=== PATIENT | female | born 1955 | race Caucasian/White ===

== ENCOUNTER → 2018-03-04 | Outpatient (CLI) | payer BC, OTHER ==
[~2018-03-04] VITALS: Ht 170.2 cm; Wt 81.6 kg
[~2018-03-04] MED LIST: ASPIR 8181 MG PO; CARVEDILOL6.25 M1 PO; COZAAR 25 MG TA25 M1 PO
--- NOTE | ~2018-03-04 | CATHLAB ---
[facility] [address] [place] [address] INVASIVE PROCEDURE REPORT Name: ELIECER CASTILLO [facility] [id number] Admission: 03/04/18 Attend Phys: Blair Sarkar MD Discharge: Date of : 51 Date of Service: 03/04/18 1325 Report #: [id number] THIS REPORT FOR: //name// APPROVED REPORT Study performed: 03/04/2018 10:58:22 Patient Details Patient Status: Out-Patient Room #: The patient is a 62 year-old female Event Personnel Blair Sarkar Estate Planning Attorney, Isaiah Shaikh RN, Jenelle Sherwood Sandifer, David Monitor, Calvin Wheeler RN Supervisor Transcribing Operators Procedures Performed Left Heart Cath w/or w/o Coronaries [id number] [facility] Indication Positive stress test, Chest pain Risk Factors Hypertension Procedure Narrative The Right Groin^ was infiltrated with 1% Lidocaine subcutaneous anesthesia. A sheath was inserted into the RFA^. Coronary angiography was performed using coronary diagnostic catheters. The right coronary system was accessed and visualized with a JR4 catheter. The left coronary system was accessed and visualized with a JL4 catheter. The left ventricle was accessed and visualized with a PIGTAIL catheter. Left ventricular/Aortic Valve gradient assessed via catheter pullback. Hemostasis was obtained with manual pressure following sheath removal without any complications. The patient tolerated the procedure well and there were no complications associated with the procedure. There was no hematoma. Intraoperative Conscious Sedation Sedation start time: 11.22 Case end Time: 12.03 Fentanyl 50 mcg Versed 1.5 mg Fluoro Time: 1.29 minutes Dose: DAP 2552 cGycm2 340 mGy [facility] [address] [place] [address] INVASIVE PROCEDURE REPORT Name: KAITY CASTILLOEY FARIBA Room #: REG CL [facility].#: [id number] Admission: 03/04/18 Attend Phys: Blair Sarkar MD Discharge: Date of : 51 Date of Service: 03/04/18 1325 Report #: [id number] Contrast Type and Amount: Omnipaque 95 ml Coronary Angiography The patient's coronary anatomy is right dominant. Diagnostic Cath Left Main Large-caliber vessel, with no flow-limiting lesions. LAD Moderate size caliber vessel, traveling down the anterior wall, wrapping around the apex and terminating in the distal inferior wall. Circumflex Supplies 2 OM vessels. OM1 Patent vessel, with no flow-limiting lesions. OM2 Patent vessel, with no flow-limiting lesions. Right Coronary Dominant vessel, with mild disease in the midsegment, less than 20%. R PDA Patent vessel, with no flow-limiting lesions. RPLV Patent vessel, with no flow-limiting lesions. Left Ventriculography The left ventricle is normal in size with normal contractility. The left ventricular ejection fraction is estimated to be 55-60%. Hemodynamics The aortic pressure is 117/71 mmHg with a mean of 77 mmHg. The left ventricular pressure is 115/11 mmHg with a mean of mmHg. The left ventricular end diastolic pressure is 16 mmHg. There was no gradient across the aortic valve upon pullback. Pullback from the left ventricle to the aorta revealed no gradient across the aortic valve. Conclusion 1. Right dominant system. Mild plaquing in the mid RCA. 2. Normal LV systolic function. 3. Recommend risk factor management. <ELECTRONICALLY SIGNED> By: Blair Sarkar MD 03/04/18 1325 1325 1325 Blair Sarkar MD /INF
[2018-03-04 10:11] LABS: HEMATOCRIT 33.7 % (37.0-47.0); HEMOGLOBIN 10.9 gm/dL (12.0-15.0); MCH 22.8 pg (26.0-34.0); MCHC 32.3 g/dL (28.0-37.0); MCV 70.7 fL (80.0-100.0); RBC 4.76 mil/uL (4.20-5.00); RDW 16.6 % (10.5-14.5); WBC 4.8 thou/uL (4.0-11.0)
[2018-03-04 10:17] LABS: CALCIUM 9.2 mg/dL (8.5-10.1); CREATININE 0.9 mg/dL (0.6-1.0); POTASSIUM 4.3 mmol/L (3.5-5.1)
== END | disposition home or self-care (01) ==
LOC: CATH 07:55
PROVIDERS: Internal Medicine Cardiovascular Disease
DX: I25.10 Atherosclerotic heart disease of native coronary artery without angina pectoris (principal); I10 Essential (primary) hypertension; M19.90 Unspecified osteoarthritis, unspecified site; Z87.891 Personal history of nicotine dependence; Z82.49 Family history of ischemic heart disease and other diseases of the circulatory system; Z98.890 Other specified postprocedural states; Z87.19 Personal history of other diseases of the digestive system; Z79.899 Other long term (current) drug therapy; Z88.8 Allergy status to other drugs, medicaments and biological substances; Z79.82 Long term (current) use of aspirin; Z90.710 Acquired absence of both cervix and uterus

== ENCOUNTER → 2018-05-17 | Outpatient (CLI) | payer BC, OTHER ==
--- NOTE | ~2018-05-17 | 2DMMODE ---
[facility] [address] [place] [address] 2 D/M-MODE ECHOCARDIOGRAM Name: ELIECER CASTILLO Room #: REG [facility]#: [id number] Admission: 05/17/18 Attend Phys: Blair Sarkar MD Discharge: Date of : 51 Date of Service: 05/17/18 1137 Report #: [id number] THIS REPORT FOR: //name// APPROVED REPORT Study performed: 05/17/2018 10:46:46 EXAM: Comprehensive 2D, Doppler, and color-flow Echocardiogram Patient Location: Out-Patient Status: routine BSA: 1.93 HR: 62 bpm BP: 126/82 mmHg Other Information Study Quality: Adequate Indications CAD Hypertension/HDD 2D Dimensions RVDd: 33.01 mm IVSd: 11.15 (7-11mm) LVOT Diam: 22.95 (18-24mm) LVDd: 45.78 mm PWd: 13.45 (7-11mm) Ascending Ao: 30.60 (22-36mm) LVDs: 29.96 (25-40mm) Aortic Root: 30.65 mm IVC: 13.00 mm Volumes Left Atrial Volume (Systole) Single Plane 4CH: 58.04 mL Single Plane 2CH: 72.30 mL LA ESV Index: 36.00 mL/m2 Aortic Valve AoV Peak Tushar.: 1.43 m/s AO Peak Gr.: 8.18 mmHg LVOT Max P.41 mmHg LVOT Max V: 1.16 m/s AMIRA Vmax: 3.36 cm2 Mitral Valve E/A Ratio: 1.1 MV Decel. Time: 247.93 ms MV E Max Tushar.: 0.72 m/s [facility] [address] [address] 2 D/M-MODE ECHOCARDIOGRAM Name: ELIECER CASTILLO Room #: REG [facility]#: [id number] Admission: 05/17/18 Attend Phys: Blair Sarkar MD Discharge: Date of : 51 Date of Service: 05/17/18 1137 Report #: [id number] MV A Tushar.: 0.67 m/s MV PHT: 71.90 ms IVRT: 110.73 ms Pulmonary Valve PV Peak Tushar.: 0.98 m/s PV Peak Gr.: 3.85 mmHg Pulmonary Vein P Vein S: 0.65 m/s P Vein A: 0.19 m/s P Vein D: 0.53 m/s P Vein A Dur.: 101.5 msec P Vein S/D Ratio: 1.23 Tricuspid Valve RAP Estimate: 5.00 mmHg Left Ventricle The left ventricle is normal size. Mild concentric left ventricular hypertrophy. The left ventricular systolic function is normal. The left ventricular ejection fraction is within the normal range. LVEF is 60-65%. Transmitral Doppler flow pattern suggests pseudonormalization. Right Ventricle The right ventricle is normal size. The right ventricular systolic function is normal. Atria Left atrium is at the upper limits of normal. The right atrium size is normal. Aortic Valve The aortic valve is normal in structure. No aortic regurgitation is present. There is no aortic valvular stenosis. Mitral Valve The mitral valve is normal in structure. Trace mitral regurgitation. No evidence of mitral valve stenosis. Tricuspid Valve The tricuspid valve is normal in structure. There is no tricuspid valve regurgitation noted. Unable to assess PA pressure. Pulmonic Valve Pulmonic valve is not well visualized. There is no pulmonic valvular regurgitation visualized. [facility] [address] [place] [address] 2 D/M-MODE ECHOCARDIOGRAM Name: ELIECER CASTILLO FARIBA Room #: REG [facility]..#: [id number] Admission: 05/17/18 Attend Phys: Blair Sarkar MD Discharge: Date of : 51 Date of Service: 05/17/18 1137 Report #: [id number] Great Vessels The aortic root is normal in size. IVC is normal in size and collapses >50% with inspiration. Pericardium There is no pericardial effusion. <Conclusion> The left ventricle is normal size. Mild concentric left ventricular hypertrophy. The left ventricular systolic function is normal. Transmitral Doppler flow pattern suggests pseudonormalization. The right ventricle is normal size. Left atrium is at the upper limits of normal. The aortic valve is normal in structure. Trace mitral regurgitation. There is no tricuspid valve regurgitation noted. <ELECTRONICALLY SIGNED> By: Blair Sarkar MD 05/17/18 1137 1137 1137 Blair Sarkar MD /INF
== END ==
LOC: CV 08:49
DX: I51.7 Cardiomegaly (principal); I25.10 Atherosclerotic heart disease of native coronary artery without angina pectoris; I42.9 Cardiomyopathy, unspecified

== ENCOUNTER → 2019-05-12 | Outpatient (CLI) | payer BC, OTHER ==
--- NOTE | 2019-05-12 10:36 | 2DMMODE ---
[facility] [address] [place] [address] 2 D/M-MODE ECHOCARDIOGRAM Name: CASTILLOELIECER FARIBA Room #: REG [facility]#: [id number] ������������� Admission: 05/12/19 ������������� Attend Phys: Blair Sarkar MD Discharge: ��� ������������� ��� Date of : 51 �������������������� �� Report #: [id number] �������� ��������������������������������������������[id number] THIS REPORT FOR: //name// APPROVED REPORT Study performed: 05/12/2019 09:43:24 EXAM: Comprehensive 2D, Doppler, and color-flow Echocardiogram Patient Location: Echo lab Status: routine BSA: 1.96 HR: 86 bpm BP: 158/80 mmHg Other Information Study Quality: Adequate Indications Cardiomyopathy Hypertension/HDD 2D Dimensions RVDd: 40.04 mm IVSd: 11.58 (7-11mm) LVOT Diam: 20.47 (18-24mm) LVDd: 56.18 mm PWd: 12.14 (7-11mm) Ascending Ao: 26.83 (22-36mm) LVDs: 39.42 (25-40mm) Aortic Root: 28.87 mm IVC: 18.00 mm Volumes Left Atrial Volume (Systole) Single Plane 4CH: 86.47 mL Single Plane 2CH: 81.61 mL LA ESV Index: 47.00 mL/m2 Aortic Valve AoV Peak Tushra.: 1.11 m/s AO Peak Gr.: 4.96 mmHg LVOT Max P.82 mmHg LVOT Max V: 0.84 m/s AMIRA Vmax: 2.48 cm2 Mitral Valve MV Decel. Time: 186.16 ms MV E Max Tushar.: 1.10 m/s [facility] [address] [place] [address] 2 D/M-MODE ECHOCARDIOGRAM Name: CASTILLOELIECER LINK Room #: REG CL [facility]#: [id number] ������������� Admission: 05/12/19 ������������� Attend Phys: Blair Sarkar MD Discharge: ��� ������������� ��� Date of : 51 �������������������� �� Report #: [id number] �������� ��������������������������������������������[id number] IVRT: 121.11 ms Pulmonary Valve PV Peak Tushar.: 0.79 m/s PV Peak Gr.: 2.51 mmHg Pulmonary Vein P Vein S: 0.60 m/s P Vein A: 0.28 m/s P Vein D: 0.28 m/s P Vein A Dur.: 106.1 msec P Vein S/D Ratio: 2.14 Tricuspid Valve RAP Estimate: 5.00 mmHg Left Ventricle The left ventricle is normal size. Mild concentric left ventricular hypertrophy. The left ventricular systolic function is normal. The left ventricular ejection fraction is within the normal range. LVEF is 60-65%. This study is not technically sufficient to allow evaluation of the LV diastolic function due to atrial fibrillation. Right Ventricle The right ventricle is normal size. The right ventricular systolic function is normal. Atria Left atrium is moderately dilated. Right atrium is mildly dilated. Aortic Valve The aortic valve is normal in structure. No aortic regurgitation is present. There is no aortic valvular stenosis. Mitral Valve The mitral valve is normal in structure. Mild mitral regurgitation. No evidence of mitral valve stenosis. Tricuspid Valve The tricuspid valve is normal in structure. Trace tricuspid regurgitation. Unable to assess PA pressure. Pulmonic Valve The pulmonary valve is normal in structure. There is no pulmonic valvular regurgitation. Great Vessels [facility] [address] [place] [address] 2 D/M-MODE ECHOCARDIOGRAM Name: ELIECER CASTILLO Room #: REG [facility]#: [id number] ������������� Admission: 05/12/19 ������������� Attend Phys: Blair Sarkar MD Discharge: ��� ������������� ��� Date of : 51 �������������������� �� Report #: [id number] �������� ��������������������������������������������[id number] The aortic root is normal in size. IVC is normal in size and collapses >50% with inspiration. Pericardium There is no pericardial effusion. <Conclusion> The left ventricle is normal size. Mild concentric left ventricular hypertrophy. The left ventricular systolic function is normal. The right ventricle is normal size. Left atrium is moderately dilated. Right atrium is mildly dilated. The aortic valve is normal in structure. Mild mitral regurgitation. Trace tricuspid regurgitation. ��������������������������������������������� <ELECTRONICALLY SIGNED> ���������������������������������������� By: Blair Sarkar MD ��������������������������������������������� 05/12/19 1035 1035 1035 Blair Sarkar MD /INF
== END ==
LOC: CV 09:29
DX: I34.0 Nonrheumatic mitral (valve) insufficiency (principal); I42.9 Cardiomyopathy, unspecified; I11.9 Hypertensive heart disease without heart failure; Z88.8 Allergy status to other drugs, medicaments and biological substances

== ENCOUNTER → 2019-07-24 | Outpatient (CLI) | payer BC, OTHER ==
[~2019-07-24] MED LIST changes: +DEXILANT60 MG PO; +ELIQUIS5 MG PO; +IRON325 M1 PO; +LOPRESSOR50 MG PO; +SPIRONOLACTONE25 MG PO; +TIROSINT25 MCG PO; +TOPROL XL50 MG PO; +VITAMIN B122500 MCG PO; +ZESTRIL5 MG PO; +ZYRTEC10 M4 PO
--- NOTE | 2019-07-26 22:40 | SLE ---
[facility] [place] [address] POLYSOMNOGRAPHY STUDY Name: CASTILLOELIECER LINK Room #: REG [facility].#: [id number] Admission: 07/24/19 Attend Phys: Andrew Rosales MD Discharge: Date of : 51 Report #: [id number] THIS REPORT FOR: //name// CC: Andrew Bennett MD DATE OF SERVICE: 07/24/2019 SLEEP STUDY ATTENDING PHYSICIAN: Dr. Carlos Bennett The patient is 64 years old, who weighs 179 pounds with a BMI of 28. The patient's Wellston score was 10. The patient underwent diagnostic sleep study performed at [facility]. During the night study, the patient spent 494 minutes in bed and slept for 327 minutes with a sleep efficiency of 66%. Sleep latency was 42.8 minutes with a REM latency of 257 minutes. Sleep architecture showed normal stage 1 sleep, increased stage 2 sleep, normal slow wave and normal REM sleep. During the night study, the patient had 3 obstructive apneas, 1 mixed apnea, no central apneas and 41 hypopneas. The patient's apnea hypopnea index was 8.2 per hour with a REM index of 31 per hour and a supine index of 9.9 per hour. EKG monitoring revealed an average heart rate of 59 beats per minute. No sustained arrhythmias observed. PLMS were seen at an index of 79 per hour and 8 per hour caused EEG arousals. Nocturnal oximetry study revealed an average oxygen saturation of 94% with lowest of 66%. 8 minutes were spent in oxygen saturation less than 89%. Due to low AHI, the patient did not meet the split night criteria for CPAP initiation. IMPRESSION: 1. Mild sleep apnea-hypopnea syndrome with worsening during REM sleep. Total AHI 8 per hour with a REM index of 31 per hour. 2. Nocturnal hypoxia secondary to obstructive sleep apnea. 3. Severe periodic limb movements. 4. Reduced sleep efficiency resulting from sleep maintenance insomnia. RECOMMENDATIONS: [facility] [address] [address] POLYSOMNOGRAPHY STUDY Name: ELIECER CASTILLO Room #: REG [facility]#: [id number] Admission: 07/24/19 Attend Phys: Andrew Rosales MD Discharge: Date of : 51 Report #: [id number] 1. The patient has mild sleep apnea with worsening during REM sleep. If the patient is clinically symptomatic or has comorbid conditions, then consider treatment of sleep apnea with CPAP. 2. Once the patient is optimally treated, then follow up in 4-6 weeks to assess compliance with CPAP and to document clinical improvement. 3. Alternate treatment option would include use of an oral appliance. 4. Avoid PROOF READER depressants. 5. Weight loss to ideal body weight is recommended. 6. Caution regarding driving until symptoms of sleep apnea resolve with the above recommendations. <ELECTRONICALLY SIGNED> By: Andrew Rosales MD 07/26/19 3180 1339 1438 Andrew Rosales MD /beth
== END ==
LOC: SLEEPLAB 18:42
DX: G47.30 Sleep apnea, unspecified (principal); G47.33 Obstructive sleep apnea (adult) (pediatric); I48.91 Unspecified atrial fibrillation; R09.02 Hypoxemia

== ENCOUNTER → 2019-07-28 | Outpatient (CLI) | payer BC, OTHER ==
[2019-07-28 08:03] LABS: HEMATOCRIT 28.6 % (37.0-47.0); HEMOGLOBIN 8.7 gm/dL (12.0-15.0); MCH 21.1 pg (26.0-34.0); MCHC 30.4 g/dL (28.0-37.0); MCV 69.3 fL (80.0-100.0); RBC 4.13 mil/uL (4.20-5.00); RDW 16.3 % (10.5-14.5); WBC 4.8 thou/uL (4.0-11.0)
[2019-07-28 08:27] LABS: ALBUMIN 3.6 g/dL (3.4-5.0); CALCIUM 9.2 mg/dL (8.5-10.1); CREATININE 0.7 mg/dL (0.6-1.0); POTASSIUM 4.4 mmol/L (3.5-5.1); TOTAL BILIRUBIN 0.6 mg/dL (<0.1-1.0)
== END ==
LOC: CAT 07:22
PROVIDERS: Internal Medicine Cardiovascular Disease
DX: R91.1 Solitary pulmonary nodule (principal); R91.8 Other nonspecific abnormal finding of lung field; J98.11 Atelectasis; I48.91 Unspecified atrial fibrillation; I25.10 Atherosclerotic heart disease of native coronary artery without angina pectoris; M41.85 Other forms of scoliosis, thoracolumbar region

== ENCOUNTER → 2019-08-01 | Outpatient (CLI) | payer BC, OTHER ==
[~2019-08-01] VITALS: Ht 170.2 cm; Wt 83.0 kg
[2019-08-01 07:51] VITALS: BP 114/59
--- NOTE | 2019-08-01 08:41 | TEE ---
[facility] [place] [address] TRANSESOPHAGEAL ECHOCARDIOGRAM Name: ELIECER CASTILLO Room #: REG CL [facility]#: [id number] Admission: 08/01/19 Attend Phys: Juanito Lopez, Discharge: Date of : 51 Report #: [id number] THIS REPORT FOR: //name// APPROVED REPORT Study performed: 08/01/2019 07:57:46 EXAM: Comprehensive 2D, Doppler, and color-flow Echocardiogram Patient Location: Out-Patient Room #: 9 Status: routine BSA: 1.95 HR: 59 bpm BP: 114/59 mmHg Rhythm: Bradycardia Other Information Study Quality: Excellent Indications Atrial Fibrillation Echo Enhancing Agent Indication: Rule out Shunt Agent(s) / Amount(s) Used: Agitated Saline 7 cc Procedure After obtaining informed consent, patient underwent transesophageal echo in the [facility]. Type of Sedation : Conscious Sedation Sedation was administered by Nurse. Sedation was achieved intravenously with: Versed (3 mg) Fentanyl (100 mcg) Transesophageal probe was inserted and advanced into esophagus without difficulty by Juanito Lopez MD. Echo enhancement indication: R/O Septal defect. Echo enhancement agent administered: Agitated Saline The MARK was performed without complications. Throughout the procedure, the blood pressure, pulse oximetry, cardiac rhythm, and rate were monitored. The patient tolerated the procedure without adverse effects. Recovery from conscious sedation was uneventful and vital signs were stable. [facility] [address] [place] [address] TRANSESOPHAGEAL ECHOCARDIOGRAM Name: ELIECER CASTILLO Room #: REG [facility].#: [id number] Admission: 08/01/19 Attend Phys: Juanito Lopez, Discharge: Date of : 51 Report #: [id number] Left Ventricle The left ventricle is normal size. There is normal LV segmental wall motion. Mild concentric left ventricular hypertrophy. The left ventricular systolic function is normal. The left ventricular ejection fraction is within the normal range. LVEF is 55-60%. Right Ventricle The right ventricle is normal size. The right ventricular systolic function is normal. Atria Left atrium is dilated. No thrombus is visualized in the left atrium or appendage. Lipomatous hypertrophy of the atrial septum. No shunting by contrast bubble injection. The right atrium size is normal. Aortic Valve The aortic valve is normal in structure, trileaflet No aortic regurgitation is present. There is no aortic valvular stenosis. Mitral Valve The mitral valve is normal in structure. Mild mitral regurgitation. No evidence of mitral valve stenosis. Tricuspid Valve The tricuspid valve is normal in structure. There is no tricuspid valve regurgitation noted. Pulmonic Valve The pulmonary valve is normal in structure. There is no pulmonic valvular regurgitation. Great Vessels The aortic root is normal in size. The ascending aorta is normal in size. IVC is normal in size and collapses >50% with inspiration. Pericardium There is no pericardial effusion. <Conclusion> The left ventricular systolic function is normal. There is normal LV segmental wall motion. LVEF is 55-60%. Left atrium is dilated. [facility] [address] [place] [address] TRANSESOPHAGEAL ECHOCARDIOGRAM Name: ELIECER CASTILLO [facility]: [facility] [id number] Admission: 08/01/19 Attend Phys: Juanito Lopez, Discharge: Date of : 51 Report #: [id number] No thrombus is visualized in the left atrium or appendage. Lipomatous hypertrophy of the atrial septum. No shunting by contrast bubble injection. The aortic valve is normal in structure, trileaflet. No aortic regurgitation or stenosis. The mitral valve is normal in structure. Mild mitral regurgitation. There is no pericardial effusion. <ELECTRONICALLY SIGNED> By: Juanito Lopez MD, [facility] 08/01/19840 0 0 Juanito Lopez MD, [facility] /INF
== END | disposition home or self-care (01) ==
LOC: CV 06:51
DX: I48.91 Unspecified atrial fibrillation (principal); I34.0 Nonrheumatic mitral (valve) insufficiency; I42.9 Cardiomyopathy, unspecified; I10 Essential (primary) hypertension; M19.90 Unspecified osteoarthritis, unspecified site; Z98.890 Other specified postprocedural states; Z90.49 Acquired absence of other specified parts of digestive tract; Z90.710 Acquired absence of both cervix and uterus; Z79.01 Long term (current) use of anticoagulants; Z79.899 Other long term (current) drug therapy; Z87.891 Personal history of nicotine dependence; Z88.8 Allergy status to other drugs, medicaments and biological substances

== ENCOUNTER 2019-08-04 06:36 | Observation (INO) | payer BC, OTHER ==
[2019-08-04] VITALS (10 sets, daily range): BP systolic 102–124; BP diastolic 53–75
[~2019-08-04] VITALS: Ht 170.2 cm; Wt 82.0 kg
[~2019-08-04 06:36] MED LIST changes: -TOPROL XL50 MG PO
[2019-08-04 07:28] LABS: HEMATOCRIT 28.9 % (37.0-47.0); HEMOGLOBIN 8.9 gm/dL (12.0-15.0); MCHC 30.7 g/dL (28.0-37.0); MCV 68.6 fL (80.0-100.0); PLATELET COUNT 201 thou/uL (150-400); RBC 4.21 mil/uL (4.20-5.00); RDW 17.6 % (10.5-14.5); WBC 4.6 thou/uL (4.0-11.0)
[2019-08-04 07:38] LABS: INR 1.1; PROTIME 10.9 Seconds (9.3-11.4)
[2019-08-04 07:40] LABS: CALCIUM 9.6 mg/dL (8.5-10.1); CREATININE 0.8 mg/dL (0.6-1.0)
[2019-08-04 09:20] LABS: ABSOLUTE NEUTROPHILS 1.8 thou/uL (1.4-8.2); ATYPICAL LYMPHS 2 %
[2019-08-04 09:23] LABS: OVALOCYTES 1+; TEARDROPS FEW
[2019-08-04 09:24] LABS: ANISOCYTOSIS 1+; HYPOCHROMASIA 2+; MICROCYTES 2+
--- NOTE | 2019-08-04 16:23 | NUR ---
PT ARRIVED ON UNIT AT APPROX 1300 FROM TUNGSTEN TENDER AFTER AFIB ABLATION. ADMIT ORDERS AND INSTRUCTIONS COMPLETE. VSS. A&OX4. NO C/O PAIN. WILL CONTINUE TO MONITOR AND FOLLOW POC.
[2019-08-05 00:17] VITALS: BP 90/48
[2019-08-05 03:34] VITALS: BP 100/56
--- NOTE | 2019-08-05 05:25 | NUR ---
ASSUME CARE 1900. PT/VITALS STABLE. DENIES ANY PAIN. TOLERATES ACTIVITY WELL. UP AD ANA LUISA. ASSESSMENT CHARTED. PROGRESSING WELL WITH POC. PLAN IS POSSIBLE DISCHARGE TODAY. SR ON MONITOR. WILL CONTINUE TO MONITOR AND FOLLOW WITH POC
[2019-08-05 07:50] VITALS: BP 108/65
[2019-08-05] MEDS ORDERED: TOPROL XL50 MG PO (08:05)
[2019-08-05 08:26] VITALS: BP 108/65
--- NOTE | 2019-08-05 08:56 | P ---
[facility] [place] [address] PROCEDURE REPORT Name: CASTILLOELIECER LINK Room #: 212-P [facility] M.R.#: [id number] Admission: 08/04/19 Attend Phys: Carlos Bennett MD Discharge: Date of : 51 Report #: [id number] THIS REPORT FOR: //name// CC: Nuha Bennett PREOPERATIVE DIAGNOSIS: Atrial fibrillation. POSTOPERATIVE DIAGNOSIS: Atrial fibrillation. HISTORY: The patient is a 64-year-old with history of recurrent AFib, here for ablation. PROCEDURES PERFORMED: 1. Atrial fibrillation ablation, CPT code 91472. 2. 3D mapping, CPT code 05095. 3. Intracardiac echo, CPT code 08188. ANESTHESIA: The patient underwent general anesthesia with no anesthesia related complications. DESCRIPTION OF PROCEDURE: The patient underwent informed consent. We discussed the details of the procedure including the risks, which include but not limited to infection, bleeding, vascular damage, cardiac perforation, stroke and [place]. She understood these risks and is willing to proceed. The patient was brought to EP laboratory in fasting and sedated state and prepped and draped in a sterile fashion. I injected lidocaine at the right groin region, obtained access to the right femoral vein x 3, placing an 8, 9 and 7-Macedonian short sheath using the modified Seldinger technique. Of note, the patient does have [id number] scoliosis. However, this did not really make it difficult to enter her heart. Furthermore, her heart was not abnormally rotated for transseptal. Next, I placed the decapolar catheter easily in the coronary sinus and ice catheter into the right atrium. Of note, the patient had a cardiac CT scan, which shows that she has two left and two right pulmonary veins, but I did demonstrate a very small left inferior pulmonary vein, which was challenging to enter. Next, the patient was systemically heparinized and a transseptal was performed using an SL1 sheath and a Mahomet needle. She did have lipomatous hypertrophy of the interatrial septum, but she did have a nice thin segment to perform the transseptal. Transseptal was straightforward and I was able to advance my guidewire into the left superior pulmonary vein. Obviously, the patient had been heparinized prior to transseptal. I then exchanged the SL1 sheath for the cryo sheath and I placed the Lasso catheter into the left atrium. I created a detailed 3D geometry of the left atrium. As noted, it was difficult to get the Lasso catheter into the left inferior pulmonary vein. Next, I exchanged the Lasso catheter for the cryo balloon. Then, we started by isolating the left superior pulmonary vein. I performed two 4-minute freezes in [address] [id number] PROCEDURE REPORT Name: ELIECER CASTILLO Room #: 212-P [facility] M.R.#: [id number] Admission: 08/04/19 Attend Phys: Carlos Bennett MD Discharge: Date of : 51 Report #: [id number] this vein. The vein did isolate during the first freeze within 180 seconds. I then turned my attention to the left inferior pulmonary vein, which took some time to get into. I performed a 3-minute freeze followed by 90-second freeze followed by a 4-minute freeze and the vein was clearly not isolated. I therefore decided to move on to the right-sided veins. I moved my decapolar catheter into the subclavian vein and performed phrenic nerve pacing. The right superior pulmonary vein underwent a 4-minute followed by a 140-second freeze. It appeared that the vein had isolated during the first freeze. I then turned my attention to the right inferior pulmonary vein. I performed a 120-second freeze, but came off because the temps were poor and then I performed a 4-minute freeze. The vein appeared to have isolated early on during the second freeze. I then went and re-interrogated all the veins and everything appeared isolated other than the left inferior pulmonary vein. I therefore performed a freeze of the ostium between the left superior and left inferior pulmonary veins, but this did not isolate the vein. I therefore performed a 4-minute freeze this time I was selected into the inferior branch which again was difficult to engage. I performed a very inferior freeze this time and the vein isolated within 75 seconds. I gave an additional 2-minute freeze at a very inferior aspect of this left inferior pulmonary vein as an insurance freeze. At this point, I removed the cryo balloon from the left atrium and I placed a Lasso catheter and created a detailed 3D voltage map of the left atrium and we had created a wide circumferential ablation of all four pulmonary veins. Preablation, the patient was in sinus rhythm, sinus cycle length 970 milliseconds, UT interval 170 milliseconds, QRS duration 90 milliseconds, QT interval 455 milliseconds. Post-ablation, the patient remained in sinus rhythm. No significant arrhythmias were noted during the procedure and no additional ablation was performed. As such, using intracardiac ultrasound, I verified there was no pericardial effusion. The patient received systemic protamine and then I performed a [id number] suture at the right groin. Hemostasis was obtained. The patient awoke neurologically and hemodynamically intact. No complications, no significant bleeding. CONCLUSION: Successful AFib ablation with isolation of the pulmonary veins. <ELECTRONICALLY SIGNED> By: Carlos Bennett MD 08/05/19 [id number] Carlos Bennett MD /nt
--- NOTE | 2019-08-05 09:45 | NUR ---
PT CARE ASSUMED APPROX 0700. ASSESSMENT CHARTED. DENIES PAIN AND SOA. VSS. UP WITH STEADY GAIT. PT DISCHARGING AT THIS TIME. EDUCATION AND PAPERWORK REVIEWED WITH PT. SHE DENIES QUESTIONS OR CONCERNS REGARDING POST HOSPITAL CARE, F/U AND GROIN SITE CARE. IV OUT, TELE BOX OFF. WILL ESCORT PT OUT TIMELY.
== END 2019-08-05 10:52 | disposition home or self-care (01) ==
LOC: CATH 06:36 → 2N 13:36 → CATH 15:10 → 2N 08-05 10:52
PROVIDERS: ADMIT Internal Medicine Cardiovascular Disease
DX: I48.0 Paroxysmal atrial fibrillation (principal); I10 Essential (primary) hypertension; Z90.710 Acquired absence of both cervix and uterus; Z90.89 Acquired absence of other organs; Z90.49 Acquired absence of other specified parts of digestive tract; Z23 Encounter for immunization
CPT/HCPCS: 62110; 62900; 65020; 65040; 70005